=== PATIENT | male | born 1955 | race Caucasian/White ===

== ENCOUNTER 2017-05-06 05:11 | Observation (INO) | payer SELFPAY ==
[2017-05-06] VITALS (10 sets, daily range): BP systolic 120–140; BP diastolic 66–91; PULSE 72–102; RESP 18–22; TEMP 96.8–98.2; O2SAT 94–100
[~2017-05-06 05:11] MED LIST: MEDR4PAK3 PO; MOBI7.5T PO; VENTAER INH
[2017-05-06] MEDS ORDERED: SODIUM CHLORIDE 0.9% FLUSH 10 ML FLUSH IVF PRN (05:30)
--- NOTE | 2017-05-06 05:33 | PD ---
HPI Chief Complaint: Respiratory Distress Time Seen by Provider: 05:21 Travel History International Travel<30 days: No Contact w/Intl Traveler<30days: No Traveled to known affect area: No History of Present Illness HPI Patient is a 61-year-old male with history of COPD here with complaint of shortness of breath. Patient states that he is becoming increasingly short of breath for the last 3-4 days. He has a chronic cough and chronic sputum production but this is not any worse than baseline. No associated fever, chills. He has albuterol MDI only and has been taking this without relief. Symptoms worsened today, prompting him to call EMS. Per EMS patient tachypneic with diffuse wheezing. Given albuterol 4, 125 mg Solu-Medrol en route. Patient states he feels slightly improved. Admits he is still smoking. PFSH Past Medical History COPD: Yes Diminished Hearing: No Respiratory: Yes Past Surgical History Tonsillectomy: Yes Social History Alcohol Use: Yes (BEER DAILY) Tobacco Use: Yes (ABOUT 2 PPD) Substance Use: No Allergies-Medications (Allergen,Severity, Reaction): Coded Allergies: No Known Allergies (Verified , 02/24/15) Reported Meds & Prescriptions Reported Meds & Active Scripts Active Medrol Dosepak (Methylprednisolone) 4 Mg Tariq 4 Mg PO DIRECTED TAKE DIRECTED Ventolin Hfa (Albuterol Sulfate) 18 Gm Aero 2 Puff INH Q6HPRN * SHAKE WELL BEFORE USE * Reported Mobic (Meloxicam) 7.5 Mg Tab 7.5 Mg PO DAILY Review of Systems Except as stated in HPI: all other systems reviewed are Neg Physical Exam Narrative GENERAL: Adult male appearing older than stated age in mild to moderate respiratory distress SKIN: Focused skin assessment warm/dry. HEAD: Normocephalic. EYES: No scleral icterus. No injection or drainage. ENT: No nasal bleeding or discharge. Mucous membranes pink and moist. NECK: supple CARDIOVASCULAR: Regular rate and rhythm. No murmur appreciated. RESPIRATORY: Tachypneic with mild to moderate respiratory distress and diffuse wheezing bilaterally GASTROINTESTINAL: Abdomen soft, non-tender, nondistended. MUSCULOSKELETAL: No obvious deformities. No edema. NEUROLOGICAL: Awake and alert. Normal speech. PSYCHIATRIC: Appropriate mood and affect; insight and judgment normal. Data Data Last Documented VS Vital Signs Date Time Temp Pulse Resp B/P Pulse Ox O2 Delivery O2 Flow Rate FiO2 05/06/17 05:26 100 Non-Rebreather 15 05/06/17 05:26 20 05/06/17 05:20 97.8 91 132/91 Orders Complete Blood Count With Diff (05/06/17 05:23) Basic Metabolic Panel (Bmp) (05/06/17 05:23) Arterial Blood Gas (Abg) (05/06/17 05:23) Electrocardiogram (05/06/17 05:23) Ecg Monitoring (05/06/17 05:23) Oximetry (05/06/17 05:23) Oxygen Administration (05/06/17 05:23) Chest, Single Ap (05/06/17 05:23) Sodium Chloride 0.9% Flush (Ns Flush) (05/06/17 05:30) Albuterol-Ipratropium Neb (Duoneb Neb) (05/06/17 05:30) Admit Order (Ed Use Only) (05/06/17 06:15) Methylprednisolone So Succ Inj (Solumedr (05/06/17 12:00) Albuterol-Ipratropium Neb (Duoneb Neb) (05/06/17 08:00) Albuterol-Ipratropium Neb (Duoneb Neb) (05/06/17 06:30) Budeson-Formot 160-4.5 Mg Inh (Symbicort (05/06/17 09:00) Guaifenesin Er (Mucinex Er) (05/06/17 09:00) Place In Observation (05/06/17 ) Vital Signs (Adult) Q4H (05/06/17 06:17) Activity Oob Ad Jeimy (05/06/17 06:17) Diet Regular Basic (05/06/17 Breakfast) Sodium Chloride 0.9% Flush (Ns Flush) (05/06/17 06:30) Sodium Chloride 0.9% Flush (Ns Flush) (05/06/17 09:00) Ondansetron Inj (Zofran Inj) (05/06/17 06:30) Comprehensive Metabolic Panel (05/07/17 06:00) Complete Blood Count With Diff (05/07/17 06:00) Scd Bilateral/Knee High KELY.BID (05/06/17 06:17) Eric Bilateral/Knee High KELY.QSHIFT (05/06/17 06:17) Acetaminophen (Tylenol) (05/06/17 06:30) Acetamin-Hydrocod 325-5 Mg (Howell 5-325 (05/06/17 06:30) Acetamin-Hydrocod 325-10 Mg (Howell 10-32 (05/06/17 06:30) Docusate Sodium-Senna (Temitope-Colace) (05/06/17 09:00) Magnesium Hydroxide Liq (Milk Of Magnesi (05/06/17 06:30) Sennosides (Senokot) (05/06/17 06:30) Bisacodyl Supp (Dulcolax Supp) (05/06/17 06:30) Lactulose Liq (Lactulose Liq) (05/06/17 06:30) Labs Laboratory Tests Test 05/06/17 05/06/17 05:30 05:35 White Blood Count 5.5 TH/MM3 Red Blood Count 4.55 MIL/MM3 Hemoglobin 15.0 GM/DL Hematocrit 44.1 % Mean Corpuscular Volume 97.1 FL Mean Corpuscular Hemoglobin 33.0 PG Mean Corpuscular Hemoglobin 34.0 % Concent Red Cell Distribution Width 13.6 % Platelet Count 153 TH/MM3 Mean Platelet Volume 7.2 FL Neutrophils (%) (Auto) 52.4 % Lymphocytes (%) (Auto) 35.3 % Monocytes (%) (Auto) 9.3 % Eosinophils (%) (Auto) 2.2 % Basophils (%) (Auto) 0.8 % Neutrophils # (Auto) 2.9 TH/MM3 Lymphocytes # (Auto) 2.0 TH/MM3 Monocytes # (Auto) 0.5 TH/MM3 Eosinophils # (Auto) 0.1 TH/MM3 Basophils # (Auto) 0.0 TH/MM3 CBC Comment DIFF FINAL Differential Comment Blood Gas Puncture Site RT RADIAL Blood Gas Patient Temperature 98.6 Blood Gas HCO3 22 mmol/L Blood Gas Base Excess -2.4 mmol/L Blood Gas Oxygen Saturation 93 % Arterial Blood pH 7.39 Arterial Blood Partial 37 mmHg Pressure CO2 Arterial Blood Partial 80 mmHG Pressure O2 Arterial Blood Oxygen Content 20.3 Vol % Arterial Blood 2.0 % Carboxyhemoglobin Arterial Blood Methemoglobin 0.7 % Blood Gas Hemoglobin 15.4 G/DL Oxygen Delivery Device ROOM AIR Blood Gas Liter Flow L/M Blood Gas Inspired Oxygen 21 % MDM Medical Decision Making Medical Screen Exam Complete: Yes Emergency Medical Condition: Yes Medical Record Reviewed: Yes Differential Diagnosis 61-year-old male with history of COPD here with 3 days of shortness of breath, cough and wheezing. Differential includes COPD exacerbation, viral syndrome, pneumonia, and less likely new onset CHF. Narrative Course Patient placed on monitor, IV established and blood obtained. Twelve-lead EKG shows sinus rhythm without notable ST abnormalities, normal intervals. Patient had artery received 125 mg Solu-Medrol per EMS, 4 albuterol nebs. Still wheezing, given DuoNeb 2. Portable chest x-ray obtained that by my read shows no acute abnormalities. CBC, BMP, ABGs unremarkable. Patient will be admitted for further management of COPD exacerbation Diagnosis Primary Impression: COPD exacerbation Admitting Information Admitting Physician Requests: Marlin Wooten MD May 06, 2017 05:33
[2017-05-06] MEDS: RESP: ALBUTEROL 2.5 MG/IPRATROPIUM 0.5 MG NEB (SCH) INH (05:38)
[2017-05-06 05:52] LABS: AUTOMATED NEUTROPHIL # 2.9 TH/MM3 (1.8-7.7); BASOPHIL % 0.8 % (0.0-2.0); EOSINOPHIL # 0.1 TH/MM3 (0-0.4); EOSINOPHIL % 2.2 % (0.0-4.0); HEMATOCRIT 44.1 % (39.0-51.0); HEMO FLAGS DIFF FINAL; LYMPH % 35.3 % (9.0-44.0); MEAN CELL VOLUME 97.1 FL (80.0-100.0); MONO % 9.3 % (0.0-8.0); NEUT % 52.4 % (16.0-70.0); PLATELET COUNT 153 TH/MM3 (150-450); RED BLOOD COUNT 4.55 MIL/MM3 (4.50-5.90); RED CELL DISTRIBUTION WIDTH 13.6 % (11.6-17.2); WHITE BLOOD COUNT 5.5 TH/MM3 (4.0-11.0)
[2017-05-06 05:59] LABS: BLOOD GAS BASE EXCESS -2.4 mmol/L (-2-2); BLOOD GAS HCO3 22 mmol/L (22-26); BLOOD GAS METHEMOGLOBIN 0.7 % (0-2); BLOOD GAS O2 HGB SATURATION 93 % (90-100); BLOOD GAS OXYGEN CONTENT 20.3 Vol % (12.0-20.0); BLOOD GAS PCO2 37 mmHg (38-42); BLOOD GAS PO2 80 mmHG (61-120); BLOOD GAS TOTAL HGB 15.4 G/DL (12.0-16.0); CRITICAL VALUE NO; DRAW SITE RT RADIAL; NUMBER OF ARTERIAL PUNCTURES 1; STAT YES; TEMP CORR TO 98.6; ULNAR PULSE PRESENT
[2017-05-06 06:00] LABS: FIO2 21 %; OXYGEN DEVICE ROOM AIR
--- NOTE | 2017-05-06 06:01 | RADRPT ---
EXAM DATE/TIME: 05/06/2017 05:19 [place] COMPARISON: No previous studies available for comparison. INDICATIONS : Shortness of breath. MEDICAL HISTORY : Chronic obstructive pulmonary disease. Hypertension SURGICAL HISTORY : None. ENCOUNTER: Initial ACUITY: 1 day PAIN SCORE: 0/10 LOCATION: Bilateral chest FINDINGS: Hyperinflation of both lungs. No consolidation or effusion. Heart size normal. Degenerative changes o f the spine. Small hiatal hernia suspected. CONCLUSION: No acute disease. Francisco Javier Proctor MD on May 06, 2017 at 5:59 Board Certified Radiologist. This report was verified electronically.
[2017-05-06] MEDS ORDERED: ACETAMINOPHEN 325 MG TAB PO PRN (06:30)
[2017-05-06] MEDS ORDERED: ACETAMINOPHEN/HYDROcodone 325 MG/10 MG TAB PO PRN (06:30)
[2017-05-06] MEDS ORDERED: SENNOSIDES 8.6 MG TAB PO PRN (06:30)
[2017-05-06] MEDS ORDERED: LACTULOSE SYRUP 20 GM/30 ML CUP PO PRN (06:30)
[2017-05-06] MEDS ORDERED: ONDANSETRON HCL 4 MG/2 ML VIAL IVP PRN (06:30)
[2017-05-06] MEDS ORDERED: MAGNESIUM HYDROXIDE SUSP 30 ML CUP PO PRN (06:30)
[2017-05-06] MEDS ORDERED: RESP: ALBUTEROL 2.5 MG/IPRATROPIUM 0.5 MG NEB (PRN) NEB (06:30)
[2017-05-06] MEDS ORDERED: SODIUM CHLORIDE 0.9% FLUSH 10 ML FLUSH IV FLUSH PRN (06:30)
[2017-05-06] MEDS ORDERED: ACETAMINOPHEN/HYDROcodone 325 MG/5 MG TAB PO PRN (06:30)
[2017-05-06] MEDS ORDERED: BISACODYL 10 MG SUPP RECTAL PRN (06:30)
[2017-05-06 06:54] LABS: BICARBONATE 25.2 MEQ/L (21.0-32.0); POTASSIUM 3.8 MEQ/L (3.5-5.1)
[2017-05-06] MEDS ORDERED: VENTAER INH (07:49)
[2017-05-06] MEDS ORDERED: RESP: ALBUTEROL 2.5 MG/IPRATROPIUM 0.5 MG NEB (SCH) NEB (08:00)
[2017-05-06] MEDS: DOCUSATE SODIUM 50 MG/SENNA 8.6 MG TAB PO SCH ×2 (08:56→21:00)
[2017-05-06] MEDS: guaiFENesin E.R. 600 MG TAB PO SCH ×2 (08:57→21:33)
[2017-05-06] MEDS: SODIUM CHLORIDE 0.9% FLUSH 10 ML FLUSH IV FLUSH SCH ×2 (08:57→21:00)
[2017-05-06] MEDS ORDERED: FLUMAZENIL 0.5 MG/5 ML VIAL IV PUSH PRN (09:30)
[2017-05-06] MEDS ORDERED: LORazepam 2 MG/ML VIAL IV PUSH PRN ×2 (09:30)
[2017-05-06] MEDS ORDERED: LORazepam 1 MG TAB PO PRN (09:30)
[2017-05-06] MEDS ORDERED: LORazepam 2 MG TAB PO PRN (09:30)
[2017-05-06] MEDS ORDERED: cloNIDine HCL 0.1 MG TAB PO PRN (09:30)
--- NOTE | 2017-05-06 09:36 | HHI.HP ---
[facility] Service [place] [facility] Primary Care Physician Unknown Admission Diagnosis COPD exacerbation Diagnoses: Chief Complaint: Shortness of breath Travel History International Travel<30 Days: No Contact w/Intl Traveler <30 Da: No Traveled to Known Affected Are: No History of Present Illness Written by Mohamud Bennett, acting as scribe for Dr. Hayes on 05/06/17 at 09:00. 61-year-old male with a past medical history of COPD presents with shortness of breath. 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 He states that since then he's been having worsening shortness of breath. He does have some dyspnea on exertion at baseline. He normally uses his inhaler once or twice a day. He states that his shortness of breath became acutely worse this morning so he presented to the ED. He does report a cough productive with yellow/white sputum. He denies any fever, chills, recent sick contacts. He denies any specific chest pain. He denies any lightheadedness or dizziness. He still has a bit of dyspnea on exertion when he tries to walk to the bathroom here. He is not on oxygen at home. He does not follow with a merchandise supervisor, but [facility]. He does continue to smoke at least 1 pack per day. Review of Systems Except as stated in HPI: all other systems reviewed are Neg Past Family Social History Past Medical History COPD for the last 5 or 6 years Past Surgical History Tonsillectomy at age 10 Reported Medications Albuterol inhaler Allergies: Coded Allergies: No Known Allergies (Verified , 05/06/17) Active Ordered Medications Current Medications Medications (Trade) Dose Ordered Sig/Chito Route Start Time Stop Time Status Last Admin (Symbicort 160-4.5 Inh) 2 puff Q12HR INH 05/06/17 09:00 (Mucinex Er) 600 mg BID PO 05/06/17 09:00 05/06/17 08:57 (NS Flush) 2 ml UNSCH PRN IV FLUSH 05/06/17 06:30 (NS Flush) 2 ml BID IV FLUSH 05/06/17 09:00 05/06/17 08:57 (Zofran Inj) 4 mg Q6H PRN IVP 05/06/17 06:30 (Tylenol) 650 mg Q6H PRN PO 05/06/17 06:30 (Temitope-Colace) 1 tab BID PO 05/06/17 09:00 (Milk Of Magnesia Liq) 30 ml Q12H PRN PO 05/06/17 06:30 (Senokot) 17.2 mg Q12H PRN PO 05/06/17 06:30 (Dulcolax Supp) 10 mg DAILY PRN RECTAL 05/06/17 06:30 (Lactulose Liq) 30 ml DAILY PRN PO 05/06/17 06:30 (Levaquin) 750 mg DAILY PO 05/06/17 09:30 UNV (Deltasone) 20 mg BID PO 05/06/17 09:30 UNV (Folate) 1 mg DAILY PO 05/07/17 09:00 05/12/17 08:59 UNV (Vitamin B1) 100 mg DAILY PO 05/07/17 09:00 UNV (Theragran M Tab) 1 tab DAILY PO 05/07/17 09:00 05/12/17 08:59 UNV (Catapres) 0.1 mg Q6H PRN PO 05/06/17 09:30 UNV (Romazicon Inj) 0.2 mg Q1M PRN IV PUSH 05/06/17 09:30 UNV (Ativan) 1 mg Q4H PRN PO 05/06/17 09:30 UNV (Ativan) 2 mg Q2H PRN PO 05/06/17 09:30 UNV (Ativan Inj) 2 mg Q1H PRN IV PUSH 05/06/17 09:30 UNV (Ativan Inj) 2 mg Q15M PRN IV PUSH 05/06/17 09:30 UNV (Habitrol 21 Mg Patch.24 Hr) 1 patch DAILY T-DERMAL 05/06/17 09:30 UNV Miscellaneous Information 1 DAILY T-DERMAL 05/07/17 09:00 UNV Family History Reviewed, no family history pertinent to current chief complaint Social History Drinks beer daily, varying amount, 5 beers yesterday. Denies problems with withdrawals in the past. Smokes at least 1 pack per day Used cocaine last week Physical Exam Vital Signs Vital Signs Date Time Temp Pulse Resp B/P Pulse Ox O2 Delivery O2 Flow Rate FiO2 05/06/17 07:50 97.8 87 22 120/66 96 Nasal Cannula 3 05/06/17 07:30 97.8 87 22 120/66 96 Nasal Cannula 3 05/06/17 07:30 96 Nasal Cannula 3 05/06/17 07:30 87 22 96 Nasal Cannula 3 05/06/17 07:30 22 96 Nasal Cannula 3 05/06/17 06:56 102 18 132/91 97 Nasal Cannula 3 05/06/17 05:26 100 Non-Rebreather 15 05/06/17 05:26 20 100 Non-Rebreather 15 05/06/17 05:20 97.8 91 22 132/91 99 Physical Exam GENERAL: Well-developed well-nourished. In no acute distress. SKIN: Warm and dry. No lesions noted. HEENT: Normocephalic. Pupils equal and round. Mucous membranes pink and moist. CARDIOVASCULAR: Slightly tachycardic rate and regular rhythm. No murmur appreciated. No carotid bruits. RESPIRATORY: No accessory muscle use. Clear to auscultation. Diminished breath sounds. No definite wheezing. GASTROINTESTINAL: Abdomen soft, non-tender, nondistended. Bowel sounds x4. MUSCULOSKELETAL: No obvious deformities. No clubbing or cyanosis. No edema. NEUROLOGICAL: Awake and alert. No focal neurological deficits. Moves upper and lower extremities spontaneously. Normal speech. PSYCHIATRIC: Appropriate mood and affect; insight and judgment normal. Laboratory Laboratory Tests Test 05/06/17 05/06/17 05:30 05:35 White Blood Count 5.5 Red Blood Count 4.55 Hemoglobin 15.0 Hematocrit 44.1 Mean Corpuscular Volume 97.1 Mean Corpuscular Hemoglobin 33.0 Mean Corpuscular Hemoglobin 34.0 Concent Red Cell Distribution Width 13.6 Platelet Count 153 Mean Platelet Volume 7.2 Neutrophils (%) (Auto) 52.4 Lymphocytes (%) (Auto) 35.3 Monocytes (%) (Auto) 9.3 Eosinophils (%) (Auto) 2.2 Basophils (%) (Auto) 0.8 Neutrophils # (Auto) 2.9 Lymphocytes # (Auto) 2.0 Monocytes # (Auto) 0.5 Eosinophils # (Auto) 0.1 Basophils # (Auto) 0.0 CBC Comment DIFF FINAL Differential Comment Sodium Level 138 Potassium Level 3.8 Chloride Level 102 Carbon Dioxide Level 25.2 Anion Gap 11 Blood Urea Nitrogen 7 Creatinine 0.90 Estimat Glomerular Filtration 86 Rate Random Glucose 92 Calcium Level 8.0 Blood Gas Puncture Site RT RADIAL Blood Gas Patient Temperature 98.6 Blood Gas HCO3 22 Blood Gas Base Excess -2.4 Blood Gas Oxygen Saturation 93 Arterial Blood pH 7.39 Arterial Blood Partial 37 Pressure CO2 Arterial Blood Partial 80 Pressure O2 Arterial Blood Oxygen Content 20.3 Arterial Blood 2.0 Carboxyhemoglobin Arterial Blood Methemoglobin 0.7 Blood Gas Hemoglobin 15.4 Oxygen Delivery Device ROOM AIR Blood Gas Liter Flow Blood Gas Inspired Oxygen 21 Result Diagram: 05/06/1752905/06/17529 Imaging Last Impressions Chest X-Ray 05/06/17522 Signed Impressions: Service Date/Time: Saturday, May 06, 2017 05:19 - CONCLUSION: No acute disease. Francisco Javier Proctor MD Assessment and Plan Assessment and Plan 61-year-old male with a past medical history of COPD presents with shortness of breath Acute exacerbation of COPD: Reviewed: Chest x-ray with no acute process. Afebrile with no leukocytosis. ABG noted. -Scheduled and as needed nebs -Symbicort started -Supplemental O2 as needed -Levaquin -Prednisone -Incentive spirometry Tobacco abuse: Patient has been unsuccessful with cessation in the past, encouraged cessation and [facility]. Nicotine patch. Alcohol abuse: [facility] protocol. Thiamine, folate, multivitamins. Seizure precautions. DVT prophylaxis: SCDs Discussed Condition With Patient, RN Attending Statement This note was transcribed by blanca Bennett. I, Dr. Ken Hayes personally performed the history, physical exam, and medical decision making; and confirmed the accuracy of the information in the transcribed note. Authenticated by Dr. Ken Hayes on 05/06/17 at 9:00. Mohamud Bennett May 06, 2017 09:36 Ken Hayes DO May 06, 2017 15:30
[2017-05-06] MEDS ORDERED: methylPREDNISolone SOD SUCC 40 MG/1 ML VIAL IV PUSH SCH (12:00)
[2017-05-06] MEDS: BUDESONIDE-FORMOTEROL 160/4.5 MCG INHALER INH SCH ×2 (12:30→21:33)
[2017-05-06] MEDS: LEVOFLOXACIN 750 MG TAB PO SCH (12:31)
[2017-05-06] MEDS: predniSONE 20 MG TAB PO SCH ×2 (12:31→21:33)
[2017-05-06] MEDS: NICOTINE 21 MG/24 HR PATCH T-DERMAL SCH (12:31)
--- NOTE | 2017-05-06 12:45 | EKG ---
Date Performed: 05/06/2017 Time Performed: 05:36:14 PTAGE: 61 years EKG: Sinus rhythm MARKED LEFT AXIS DEVIATION ABNORMAL ECG PREVIOUS TRACING : 05/06/2017 05.35 DOCTOR: Anish Canales Interpretating Date/Time 05/06/2017 12:42:05
[2017-05-06] MEDS: RESP: ALBUTEROL 2.5 MG/IPRATROPIUM 0.5 MG NEB (SCH) NEB ×2 (14:48→20:11)
[2017-05-06] MEDS: SODIUM CHLOR 0.9% 1000 ML INJ 1,000 ML IV SCH (17:30)
[2017-05-07 04:13] VITALS: BP 139/90; PULSE 73; RESP 18; TEMP 97.7; O2SAT 95
[2017-05-07] MEDS: SODIUM CHLOR 0.9% 1000 ML INJ 1,000 ML IV SCH (06:42)
[2017-05-07 07:18] LABS: AUTOMATED NEUTROPHIL # 9.1 TH/MM3 (1.8-7.7); BASOPHIL % 0.1 % (0.0-2.0); HEMATOCRIT 42.7 % (39.0-51.0); HEMO FLAGS DIFF FINAL; LYMPH % 9.5 % (9.0-44.0); MEAN CORPUSCULAR HEMOGLOBIN 32.7 PG (27.0-34.0); MEAN CORPUSCULAR HGB CONC 33.3 % (32.0-36.0); MONO % 7.8 % (0.0-8.0); NEUT % 82.6 % (16.0-70.0); PLATELET COUNT 175 TH/MM3 (150-450); RED BLOOD COUNT 4.35 MIL/MM3 (4.50-5.90); RED CELL DISTRIBUTION WIDTH 13.4 % (11.6-17.2); WHITE BLOOD COUNT 11.1 TH/MM3 (4.0-11.0)
[2017-05-07 07:51] LABS: ALT (GPT) 31 U/L (12-78); ANION GAP 8 MEQ/L (5-15); AST (GOT) 23 U/L (15-37); BICARBONATE 25.2 MEQ/L (21.0-32.0); BLOOD UREA NITROGEN 9 MG/DL (7-18); CHLORIDE 104 MEQ/L (98-107); GLOMERULAR FILTRATION RATE 93 ML/MIN (>89); POTASSIUM 4.6 MEQ/L (3.5-5.1); SODIUM (NA) 137 MEQ/L (136-145)
[2017-05-07 07:53] LABS: ALKALINE PHOSPHATASE 40 U/L (45-117); TOTAL BILIRUBIN ADULT 0.3 MG/DL (0.2-1.0)
[2017-05-07] MEDS: RESP: ALBUTEROL 2.5 MG/IPRATROPIUM 0.5 MG NEB (SCH) NEB (08:03)
[2017-05-07 08:05] VITALS: O2SAT 95
[2017-05-07 08:10] VITALS: BP 142/88; PULSE 83; RESP 20; TEMP 97.8; O2SAT 95
[2017-05-07] MEDS: LEVOFLOXACIN 750 MG TAB PO SCH (08:43)
[2017-05-07] MEDS: NICOTINE 21 MG/24 HR PATCH T-DERMAL SCH (08:43)
[2017-05-07] MEDS: guaiFENesin E.R. 600 MG TAB PO SCH (08:43)
[2017-05-07] MEDS: DOCUSATE SODIUM 50 MG/SENNA 8.6 MG TAB PO SCH (08:44)
[2017-05-07] MEDS ORDERED: MULTIVITAMINS/MINERALS THERAPEUTIC TAB PO SCH (09:00)
[2017-05-07] MEDS ORDERED: REMOVE OLD PATCH T-DERMAL SCH (09:00)
[2017-05-07] MEDS ORDERED: FOLIC ACID 1 MG TAB PO SCH (09:00)
[2017-05-07] MEDS ORDERED: THIAMINE HCL 100 MG TAB PO SCH (09:00)
[2017-05-07] MEDS ORDERED: VENTAER INH (09:27)
[2017-05-07] MEDS ORDERED: PRED20 PO (09:27)
[2017-05-07] MEDS ORDERED: LEVA750T9 PO (09:27)
[2017-05-07] MEDS ORDERED: SYMB160A INH (09:27)
--- NOTE | 2017-05-07 09:28 | HHI.DCPOC ---
Discharge Care Plan Diagnosis: (1) COPD exacerbation Goals to Promote Your Health * To prevent worsening of your condition and complications * To maintain your health at the optimal level Directions to Meet Your Goals Take your medications as prescribed Follow your dietary instruction Follow activity as directed Keep your appointments as scheduled Take your immunizations and boosters as scheduled If your symptoms worsen call your PCP, if no PCP go to Urgent Care Center or Emergency Room Smoking is Dangerous to Your Health. Avoid second hand smoke Call the 24-hour hour crisis hotline for domestic abuse at Haley Bradford PA-C May 07, 2017 9:28 am
--- NOTE | 2017-05-07 09:33 | HHI.PR ---
Subjective Remarks Follow up for COPD exacerbation. The patient is seen ambulating the unit this morning without difficulty. He states he feels much improved compared to yesterday. Denies any further wheezing. Denies any chest pain or shortness of breath. Still has occasional nonproductive cough. Denies fevers/chills. He wants to go home. Objective Vitals Vital Signs Date Time Temp Pulse Resp B/P Pulse Ox O2 Delivery O2 Flow Rate FiO2 05/07/17 08:10 97.8 83 20 142/88 95 05/07/17 08:05 95 05/07/17 04:13 97.7 73 18 139/90 95 05/06/17 23:21 97.6 76 18 128/77 97 05/06/17 20:23 98.0 91 18 139/77 95 05/06/17 16:56 98.2 72 20 140/68 95 05/06/17 11:46 96.8 85 18 140/78 96 05/06/17 09:41 94 21 I/O 05/06/17 05/06/17 05/06/17 05/07/17 05/07/17 05/07/17 07:00 15:00 23:00 07:00 15:00 23:00 Intake Total 900 ml 990 ml Balance 900 ml 990 ml Intake Oral 900 ml 990 ml # Voids 4 2 # Bowel Movements 0 Result Diagram: 05/07/17 0638 05/07/17 0638 Imaging Last Impressions Chest X-Ray 05/06/17 0523 Signed Impressions: Service Date/Time: Saturday, May 06, 2017 05:19 - CONCLUSION: No acute disease. Francisco Javier Proctor MD Objective Remarks GENERAL: Well-nourished, well-developed middle aged male patient in [facility]. SKIN: Warm and dry. No rash. HEENT: Normocephalic. Atraumatic.Pupils equal and round. Mucous membranes pink and moist. NECK: Supple. Trachea midline. CARDIOVASCULAR: Regular rate and rhythm. S1, S2 noted. No murmur appreciated. RESPIRATORY: No accessory muscle use. Clear to auscultation, no wheezing. Breath sounds equal bilaterally. GASTROINTESTINAL: Abdomen soft, non-tender, nondistended. Normoactive bowel sounds x4. MUSCULOSKELETAL: No obvious deformities. Extremities without clubbing, cyanosis , or edema. NEUROLOGICAL: Awake and alert. No obvious cranial nerve deficits. Motor grossly within normal limits. Normal speech. PSYCHIATRIC: Appropriate mood and affect; insight and judgment normal. Medications and IVs Current Medications Medications (Trade) Dose Ordered Sig/Chito Route Start Time Stop Time Status Last Admin (Symbicort 160-4.5 Inh) 2 puff Q12HR INH 05/06/17 09:00 05/06/17 21:33 (Mucinex Er) 600 mg BID PO 05/06/17 09:00 05/07/17 08:43 (NS Flush) 2 ml UNSCH PRN IV FLUSH 05/06/17 06:30 (NS Flush) 2 ml BID IV FLUSH 05/06/17 09:00 05/06/17 08:57 (Zofran Inj) 4 mg Q6H PRN IVP 05/06/17 06:30 (Tylenol) 650 mg Q6H PRN PO 05/06/17 06:30 (Temitope-Colace) 1 tab BID PO 05/06/17 09:00 05/07/17 08:44 (Milk Of Magnesia Liq) 30 ml Q12H PRN PO 05/06/17 06:30 (Senokot) 17.2 mg Q12H PRN PO 05/06/17 06:30 (Dulcolax Supp) 10 mg DAILY PRN RECTAL 05/06/17 06:30 (Lactulose Liq) 30 ml DAILY PRN PO 05/06/17 06:30 (Levaquin) 750 mg DAILY PO 05/06/17 09:30 05/07/17 08:43 (Deltasone) 20 mg BID PO 05/06/17 09:30 05/06/17 21:33 (Folate) 1 mg DAILY PO 05/07/17 09:00 05/12/17 08:59 05/07/17 08:43 (Vitamin B1) 100 mg DAILY PO 05/07/17 09:00 05/07/17 08:43 (Theragran M Tab) 1 tab DAILY PO 05/07/17 09:00 05/12/17 08:59 05/07/17 08:44 (Catapres) 0.1 mg Q6H PRN PO 05/06/17 09:30 (Romazicon Inj) 0.2 mg Q1M PRN IV PUSH 05/06/17 09:30 (Ativan) 1 mg Q4H PRN PO 05/06/17 09:30 (Ativan) 2 mg Q2H PRN PO 05/06/17 09:30 (Ativan Inj) 2 mg Q1H PRN IV PUSH 05/06/17 09:30 (Ativan Inj) 2 mg Q15M PRN IV PUSH 05/06/17 09:30 (Habitrol 21 Mg Patch.24 Hr) 1 patch DAILY T-DERMAL 05/06/17 10:00 05/07/17 08:43 Miscellaneous Information 1 1 DAILY T-DERMAL 05/07/17 09:00 (NS 1000 ml Inj) 1,000 ml @ 75 mls/hr [id number] IV 05/06/17 17:30 05/07/17 20:09 05/06/17 17:30 A/P Assessment and Plan 61-year-old male with a past medical history of COPD presents with shortness of breath Acute exacerbation of COPD: Reviewed Chest x-ray with no acute process. Afebrile with no leukocytosis. ABG noted. -Scheduled and as needed nebs -Started on Symbicort bid -Supplemental O2 as needed, stable on room air -Continue Levaquin for atypical pneumonia coverage -Prednisone 20mg bid with taper at discharge -Incentive spirometry -patient much improved, no further wheezing, Passed home O2 walk test with O2 sat 97%, stable for discharge Tobacco abuse: Patient has been unsuccessful with cessation in the past, encouraged cessation and outpatient follow-up with the [place]. Nicotine patch. Alcohol abuse: [facility] protocol. Thiamine, folate, multivitamins. Seizure precautions. Has not required Ativan throughout admission. No tremor noted. DVT prophylaxis: SCDs Discharge Planning Discharge patient to home Condition on discharge: Improved Regular Diet as tolerated Ad Jeimy activity Rx written: Prednisone taper, Levaquin, Symbicort, Albuterol prn [facility] Haley Bradford PA-C May 07, 2017 9:32 am
[2017-05-07] MEDS: predniSONE 20 MG TAB PO SCH (11:16)
[2017-05-07] MEDS: BUDESONIDE-FORMOTEROL 160/4.5 MCG INHALER INH SCH (11:16)
== END 2017-05-07 11:31 | disposition home or self-care (01) ==
LOC: NEPE 05:11 → NEDA 06:17 → NEPGCP 08:14
PROVIDERS: ADMIT Hospitalist; ATTEND Hospitalist
DX: J44.1 Chronic obstructive pulmonary disease with (acute) exacerbation (principal); R94.31 Abnormal electrocardiogram [ECG] [EKG]; I10 Essential (primary) hypertension; F14.90 Cocaine use, unspecified, uncomplicated; F17.200 Nicotine dependence, unspecified, uncomplicated; Z79.899 Other long term (current) drug therapy
CPT/HCPCS: 36600; 71010; 80048; 80053; 82805; 85025; 93005; 94150; 94620; 94640; 94664; 99285; G0378; J7030; J7512